=== PATIENT | male | born 1955 | race Caucasian/White ===

== ENCOUNTER 2023-10-20 13:22 | Emergency (ER) | payer OTHER ==
[~2023-10-20] VITALS: Ht 180.3 cm; Wt 91.6 kg
[2023-10-20 14:21] LABS: BASOPHILS # (AUTO) 0.07 K/uL (0.00-0.20); BASOPHILS % (AUTO) 0.7 % (0.0-5.0); EOSINOPHILS % (AUTO) 1.9 % (0.0-8.0); HEMATOCRIT 46.2 % (42-54); IMMATURE GRANULOCYTE ABSOLUTE 0.03 K/uL (0-1); LYMPHOCYTES # (AUTO) 2.3 K/uL (1.0-4.8); LYMPHOCYTES % (AUTO) 22.6 % (21.0-51.0); MEAN CORPUSCULAR HEMOGLOBIN 27.3 pg (27.0-33.0); MEAN CORPUSCULAR HGB CONC 32.5 g/dL (32.0-36.0); MONOCYTES # (AUTO) 0.8 K/uL (0.1-1.0); MONOCYTES % (AUTO) 7.7 % (3.0-13.0); NEUTROPHILS # (AUTO) 6.9 K/uL (1.8-7.7); NEUTROPHILS % (AUTO) 66.8 % (40.0-77.0); PLATELET COUNT (AUTO) 337 K/uL (130-400); RED CELL DISTRIBUTION WIDTH 14.6 % (11.0-15.5); WHITE BLOOD COUNT (AUTO) 10.4 K/uL (4.8-10.8)
[2023-10-20] MEDS ORDERED: PANTOPRAZOLE 40 MG/VIAL IVP ONE (14:30)
[2023-10-20] MEDS ORDERED: ONDANSETRON 4MG INJ IVP ONE (14:30)
[2023-10-20] MEDS ORDERED: MORPHINE 2 MG SYG IVP ONE (14:30)
[2023-10-20] MEDS ORDERED: 0.9%NACL 1000ML 1,000 ML IV ONE (14:30)
[2023-10-20 14:35] LABS: INR <= 0.93 (0.85-1.15); PROTHROMBIN TIME 10.8 SEC (9.6-11.6)
[2023-10-20 14:36] LABS: PARTIAL THROMBOPLASTIN TIME 29.7 SEC (26.3-35.5)
[2023-10-20 14:43] LABS: CREATININE 1.3 mg/dL (0.5-1.5); POTASSIUM 4.3 mmol/L (3.5-5.1)
[2023-10-20] MEDS ORDERED: IOHEXOL-350 75 ML VIAL IV ONE (14:45)
[2023-10-20 14:49] LABS: ALBUMIN 3.5 g/dL (3.5-5.0); BILIRUBIN,TOTAL 0.6 mg/dL (0.2-1.0); TOTAL PROTEIN, SERUM 7.4 g/dL (6.0-8.3)
[2023-10-20] MEDS ORDERED: MOM30 PO (15:46)
[2023-10-20 16:30] VITALS: BP 119/62; PULSE 68; RESP 18; O2SAT 99
== END 2023-10-20 16:36 | disposition home or self-care (01) ==
LOC: EDH 13:22
DX: K59.00 Constipation, unspecified (principal); E11.65 Type 2 diabetes mellitus with hyperglycemia; E78.00 Pure hypercholesterolemia, unspecified; I10 Essential (primary) hypertension
CPT/HCPCS: 99285; 74177; 96374; 96375; 84478; 80053; 83690; 85025; 85610; 85730; 36415; J2270; J7030; J2405; C9113; Q9967